=== PATIENT | female | born 1950 | race Caucasian/White ===

== ENCOUNTER 2017-09-24 16:32 | Emergency (ER) | payer OTHER ==
[~2017-09-24] VITALS: Ht 175.3 cm; Wt 69.0 kg
--- NOTE | ~2017-09-24 | EKG ---
[place] [address] [place] [address] ELECTROCARDIOGRAM REPORT Name: MIGUEL ROY [id number] Admission: 09/24/17 Attend Phys: Discharge: 09/24/17 Date of : 52 Report #: [id number] THIS REPORT FOR: //name// [facility] ED Test Date: 2017-09-24 Test Time: 17:34:36 Pat Name: MIGUEL ROY Department: Room: Gender: F Delinquency Prevention Social Worker: MZOOK : 1950 Requested By: Angel Morton Order Number: [id number] MD: Zeyad Méndez Measurements Intervals [place] Rate: 52 P: 61 MN: 128 QRS: 33 QRSD: 90 T: 24 QT: 513 QTc: 478 Interpretive Statements Sinus rhythm Low voltage, extremity leads Early R-wave progression Abnormal T, consider ischemia, anterior leads No previous ECG available for comparison Electronically Signed On 09-25-2017 8:19:35 RESTAURANT SERVER by Zeyad Méndez [email or web address] <ELECTRONICALLY SIGNED> By: Zeyad Méndez MD, [facility] 09/25/17 0819 1734 173 Zeyad Méndez MD, FACC /EPI
[2017-09-24] MEDS ORDERED: ZANTAC 150MG T150 MG PO (17:08)
[2017-09-24] MEDS ORDERED: HYDROXYZINE HCL25 M1 PO (17:08)
[2017-09-24] MEDS ORDERED: ALL DAY ALLERGY10 M3 PO (17:09)
[2017-09-24] MEDS ORDERED: CIPRO500 MG PO (17:09)
[2017-09-24] MEDS ORDERED: MOBIC15 MG PO (17:10)
[2017-09-24 17:59] LABS: ABSOLUTE NEUTROPHILS 5.3 thou/uL (1.4-8.2); BASOPHILS 0.3 % (0.0-2.0); EOSINOPHILS 0.9 % (0.0-3.0); HEMATOCRIT 35.8 % (37.0-47.0); LYMPHOCYTES 12.2 % (24.0-44.0); MCHC 33.6 g/dL (28.0-37.0); MCV 89.1 fL (80.0-100.0); MONOCYTES 7.7 % (1.0-8.0); PLATELET COUNT 193 thou/uL (150-400); POLYS 78.9 % (36.0-66.0); RBC 4.01 mil/uL (4.20-5.00); RDW 15.3 % (10.5-14.5); WBC 6.7 thou/uL (4.0-11.0)
[2017-09-24 18:00] LABS: MANUAL DIFF NO
[2017-09-24 18:32] LABS: URINE BLOOD NEGATIVE (Negative); URINE COLOR YELLOW; URINE GLUCOSE-RANDOM* NEGATIVE (Negative); URINE KETONES 2+ (Negative); URINE LEUKOCYTES-REFLEX NEGATIVE (Negative); URINE PROTEIN (DIPSTICK) TRACE (Negative); URINE SPECIFIC GRAVITY >= 1.030 (1.005-1.035); URINE UROBILINOGEN 0.2 E.U./dl (0.2-1.0)
[2017-09-24 18:34] LABS: URINE BILIRUBIN NEGATIVE (Negative)
[2017-09-24 18:42] LABS: ALBUMIN 3.4 g/dL (3.4-5.0); ALKALINE PHOSPHATASE 207 U/L (46-116); ANION GAP 13 mmol/L (7-16); BUN 19 mg/dL (7-18); CALCIUM 8.9 mg/dL (8.5-10.1); CHLORIDE 105 mmol/L (98-107); CO2 22 mmol/L (21-32); CREATININE 0.7 mg/dL (0.6-1.0); GLUCOSE 143 mg/dL (74-106); POTASSIUM 3.7 mmol/L (3.5-5.1); SGOT 55 U/L (15-37); SGPT 85 U/L (30-65); SODIUM 140 mmol/L (136-145); TOTAL BILIRUBIN 0.4 mg/dL (<0.1-1.0); TOTAL PROTEIN 6.7 g/dL (6.4-8.2); TROPONIN-I < 0.04 ng/mL (<0.06)
[2017-09-24 19:47] VITALS: BP 185/86
[2017-09-24] MEDS ORDERED: ZOFRAN ODT8 MG PO (19:57)
[2017-09-24] MEDS ORDERED: NORCO 5-325 TA1 EACH PO (19:57)
[2017-09-24] MEDS ORDERED: NAPROSYN500 MG PO (19:57)
== END 2017-09-24 20:45 | disposition home or self-care (01) ==
LOC: ER 16:32
PROVIDERS: Emergency Medicine
DX: T84.52XA Infection and inflammatory reaction due to internal left hip prosthesis, initial encounter (principal); M54.6 Pain in thoracic spine; R79.82 Elevated C-reactive protein (CRP); R79.89 Other specified abnormal findings of blood chemistry; F17.210 Nicotine dependence, cigarettes, uncomplicated; Y92.89 Other specified places as the place of occurrence of the external cause

== ENCOUNTER 2017-09-27 10:11 | Inpatient (IN) | payer OTHER ==
[~2017-09-27] VITALS: Ht 175.3 cm; Wt 69.4 kg
--- NOTE | ~2017-09-27 | EKG ---
[address] [facility] [place] [address] ELECTROCARDIOGRAM REPORT Name: MIGUEL ROY Room #: 170-8 ADM IN M.R.#: [id number] Admission: 09/27/17 Attend Phys: Anali Alvarez MD Discharge: Date of : 52 Report #: [id number] THIS REPORT FOR: //name// [facility] ED Test Date: 2017-09-27 Test Time: 10:28:30 Pat Name: MIGUEL ROY Department: Room: 170 Gender: F Landmen: [facility] : 1950 Requested By: Ronel Mercado Order Number: [id number] MD: Rafa Jesus Measurements Intervals [place] Rate: 56 P: 45 WI: 129 QRS: 13 QRSD: 91 T: 40 QT: 477 QTc: 461 Interpretive Statements Sinus rhythm Probable left atrial enlargement Early R to S wave transition Nonspecific ST segment abnormalities Compared to ECG 09/24/2017 17:34:36 Possible ischemia no longer present Electronically Signed On 09-27-2017 12:34:25 SAP SECURITY ARCHITECT by Rafa Jesus [email or web address] <ELECTRONICALLY SIGNED> By: Rafa Jesus MD 09/27/17 1234 1028 1028 Rafa Jesus MD /VANESSA
--- NOTE | ~2017-09-27 | HC ---
[facility] [place] [address] CONSULTATION Name: ANNE TOHMAS Room #: 408-P [facility] IN ..#: [id number] Admission: 09/27/17 Attend Phys: Anali Alvarez MD Discharge: 10/04/17 Date of : 52 Report #: [id number] THIS REPORT FOR: //name// CC: Anali Vásquez DATE OF SERVICE: 09/29/2017 CONSULTATION: Infectious diseases. HISTORY OF PRESENT ILLNESS: Alec Thomas is a 67-year-old white female who is admitted to the hospital on September 27, with nausea and vomiting. Workup showed elevated lipase and some peripancreatic fluid suggesting acute pancreatitis. After coming to the hospital, the patient developed a diffuse morbilliform rash. The patient was evaluated in the emergency room on September 24, with back pain, that was mid back and low back. She was also noted to be dizzy and lightheaded with generalized malaise. This was thought to be a musculoskeletal problem, was treated with inflammatory drugs and anti-spasm drugs. The patient was started on Cipro approximately 4 weeks ago, she had a left hip replacement done in January of this year. While in rehab, the patient had significant drainage from the wound. She said this was cultured and she was given antibiotics, but she is not sure what. She did not have a followup surgical procedure. Antibiotics were discontinued. Approximately one month ago, she was having more pain in the hip. She had an aspiration and then had washout with placement of antibiotic impregnated beads. The patient does not know what the culture showed. She was told that she should take Cipro for 4 weeks after the procedure. At one point, she was told to take 2 more weeks because what sounds like an elevation of the sed rate and a CRP. In this setting, the patient developed these new symptoms. PAST MEDICAL HISTORY: Otherwise pretty much unremarkable. The patient is generally in good health without any ongoing medical problems. MEDICATION RECONCILIATION: Current medications include enoxaparin 40 mg subq at bedtime, pantoprazole 40 mg b.i.d., hydroxyzine 25 mg q.i.d. p.r.n. itch, Rocephin 1 gram daily, p.r.n. morphine, MiraLax and Zofran. ALLERGIES: The patient has no known drug allergies prior to the current illness. FAMILY HISTORY: Noncontributory. SOCIAL HISTORY: The patient is . She lives with her who had [address] [address] CONSULTATION Name: ANNE THOMAS Room #: 408-P [facility]#: [id number] Admission: 09/27/17 Attend Phys: Anali Alvarez MD Discharge: 10/04/17 Date of : 52 Report #: [id number] throat cancer. She does smoke cigarettes, and says she is interested in smoking cessation. She was counseled as to the benefits of smoking cessation, particularly with acute infection and post-surgical healing as well as benefits for her to avoid secondhand smoke with history of cancer. REVIEW OF SYSTEMS: GENERAL: The patient is not complaining of fevers, chills, or sweats. ENT: No headache, sinus congestion, sore throat, or trouble swallowing. SKIN: The patient notes the rash, but says it is not pruritic. It just came on since she came to [facility]. CHEST: No cough, chest pain, or shortness of breath. GASTROINTESTINAL: Nausea and vomiting. This is better. The patient now is tolerating clear liquid diet and we would like her diet advance. The patient had the back pain and abdominal pain, these are improved, no trouble with her bowels. GENITOURINARY: No trouble with urination. HIP: The patient says that she is feeling better than it has in while and she was even able to walk without a cane this week. PHYSICAL EXAMINATION: GENERAL: The patient appears her stated age, alert, oriented, comfortable, not in any distress. VITAL SIGNS: Normal. The patient is afebrile since coming to the hospital. Blood pressure is normal. SKIN: Shows a morbilliform type rash most prominent on the distal arms and legs. There may be a few possible spots on the palms. Soles of the feet are unremarkable. Face and torso are relatively uninvolved. The lesions are dark red flat macules, almost confluent in places. HEENT: Negative. NECK: Supple. HEART: Sounds normal. LUNGS: Clear. ABDOMEN: Belly minimally tender and soft. EXTREMITIES: Unremarkable. The patient demonstrates a good flexion and abduction of the hip. The surgical wound appears mature and well healed. There is no tenderness and no swelling. LABORATORY DATA: White count is 13.8, hemoglobin 10.4, and platelet 191,000. Electrolytes: BUN and creatinine are normal and glucose normal. CRP is 71. Lactate is normal. Amylase was 4000. The urinalysis showed 2+ white cells and 6-15 white cells are microscope. Urine culture showed normal cholo. Imagings of the abdomen showed mild amount of fluid around the body of the pancreas. The biliary tree appeared unremarkable. In summary, the patient who is being treated for possible infection of a total hip arthroplasty. She has not had explantation and I am not sure if she even [facility] [place] [address] CONSULTATION Name: ANNE THOMAS Room #: 408-P [facility] IN M.R.#: [id number] Admission: 09/27/17 Attend Phys: Anali Alvarez MD Discharge: 10/04/17 Date of : 52 Report #: [id number] had a washout procedure. I do not know if there are positive cultures. The patient was placed on Cipro and then developed pancreatitis and now a rash. Pancreatitis has been described is a rare conmplication of Cipro therapy. In some studies, the incident is as high as 3%, but usually occurs within the first 10 days of treatment. There really is no other good explanation for the patient to have acute pancreatitis. It is not clear what the hip infection status is. I would like to review the records from [facility] where the original surgery was done and the implantation of the antibiotic beads. In addition, I believe there was a positive culture and the patient was at the [facility] in [place], [place]; this may allow us to get a better idea as to hip infection and what antibiotics would be appropriate. I am very concerned that the patient's pancreatitis and rash may be an adverse reaction to the Cipro. There have been a number of other drugs which have been introduced since the patient went to the ER and then here in the hospital, which may also be causing the rash. For now, I would like to change the antibiotic from Rocephin to cefepime to cover the possibility of pseudomonas or other gram-negatives. I would try to obtain the cultures from outside facilities to direct further therapy. I would suggest we avoid further quinolone therapy and have the patient report CIPRO ALLERGY. I appreciate the opportunity of input in the care of the patient. Dr. Chung will return tomorrow and will assume follow up infectious disease care. Thank you for this consultation. <ELECTRONICALLY SIGNED> By: Devante Prakash MD 10/13/17 0021 1039 1327 Devante Prakash MD /nt
--- NOTE | ~2017-09-27 | CNG ---
[facility] [place] [address] CYTO-NONGYN REPORT PROCEDURE Name: ANNE THOMAS Room #: 408-P [facility] IN M.R.#: [id number] Admission: 09/27/17 Date of : 52 Discharge: 10/04/17 Report #: [id number] Path Case #: [id number] CYTOPATHOLOGY REPORT COLLECTION DATE: 10/03/2017 RECEIVED DATE: 10/03/2017 SUBMITTING PHYS: Dr. Storm Vásquez, II OTHER PHYS: Dr. Pooja Alvarez CLINICAL HISTORY: R/O cynthia, acute pancreatitis SPECIMEN(S) RECEIVED: A.Esophageal brushing * * * * * * * * * * * * FINAL DIAGNOSIS: A. Esophageal brushing: - No malignant cells identified. -Reactive cells changes, inflammation and fungal organisms morphologically consistent with Cynthia species are present. PATHOLOGIST: Remi Loco M.D. REPORT ELECTRONICALLY SIGNED BY: Remi Loco M.D. DATE/TIME: 10/07/2017 11:11 * * * * * * * * * * * * GROSS PATHOLOGY: A. Esophageal brushing: The specimen is labeled "Anne Thomas" and consists of a brush tip in fixative. One ThinPrep slide was prepared. (lg12.) FISHER DIP NET(S): MIKEY Patel([facility]) INITIAL CPT CODE(S): A; 24211 Professional services performed by [facility] at [facility] [address], [place] [address] Technical services performed by [facility] at [address] [place] [address]., [address], [place] [address]. [facility] [address] [place] [address], [facility] [address] [place], [place] [address] [place] [address] [place] [address] CYTO-NONGYN REPORT PROCEDURE Name: ANNE THOMAS Room #: 408-P [facility] IN M.R.#: [id number] Admission: 09/27/17 Date of : 52 Discharge: 10/04/17 Report #: [id number] Path Case #: [id number] PHONE: [phone] DIRECTOR: Rudy Castro M.D. * * * END OF REPORT * * *
--- NOTE | ~2017-09-27 | P ---
[facility] [place] [address] PROCEDURE REPORT Name: ANNE THOMAS Room #: 408-P ADM IN M.R.#: [id number] Admission: 09/27/17 Attend Phys: Anali Alvarez MD Discharge: Date of : 52 Report #: [id number] THIS REPORT FOR: //name// CC: Anali Vásquez MD DATE OF SERVICE: 10/02/2017 PATIENT OF: Dr. Anali Alvarez. PROCEDURE: EGD with biopsies and brushings. INDICATION FOR PROCEDURE: Evaluate pain across the epigastrium. The patient was diagnosed with pancreatitis when she was admitted and it was thought to be due to Cipro. Her lipase has normalized, but she is continuing to complain of narcotic level pain across the epigastrium. The etiology is not clear. EGD is being performed today to try to evaluate for a source that might explain these symptoms. Informed consent for this procedure was obtained prior to the administration of any medication. The risks of the procedure, which include bleeding, perforation, infection, complications of sedation, and the possibility I could miss something have been explained to the patient. She has indicated her consent by signing. Propofol was slowly titrated before and during this procedure for the patient comfort by the anesthesia service. The [employer] upper videoscope was introduced through the upper esophageal sphincter and advanced under direct visualization to the descending duodenum. Findings are noted on withdrawal of the scope. The duodenal mucosa appears normal throughout its entirety except for some pockmarks in the duodenal bulb. Biopsies were obtained times 2 from the second portion of the duodenum to evaluate for celiac sprue. The scope was then withdrawn into the stomach. Pylorus is normal. In the antrum, there is what appears to be atrophic gastric antral mucosa, biopsies are obtained times 2 to evaluate for possible H. pylori infection. Body, normal mucosa. Cardia and fundus, normal mucosa. Retroflex view did not reveal any abnormalities. She might have a small hiatal hernia. The scope was then withdrawn into the esophagus after biopsies were obtained times 2 evaluate for possible H. pylori infection. The Z-line in the esophagus is located at the top of the gastric folds and appears normal. The esophageal mucosa appears basically normal, but there is a white exudative material that is present in the esophagus that is easily wiped off with the scope. I did send this for ALEX prep to make sure that we do not miss a Marni infection. Other than that, the esophageal mucosa appeared normal. The scope was withdrawn. The patient went to the recovery area in stable condition. [address] [address] PROCEDURE REPORT Name: WILLIAMANNE Room #: 408-P [facility] IN .R.#: [id number] Admission: 09/27/17 Attend Phys: Anali Alvarez MD Discharge: Date of : 52 Report #: [id number] She tolerated the procedure well. IMPRESSION: 1. Slightly pocked appearance 2 duodenal bulb. 2. Mildly atrophic gastric antrum. 3. White exudate in the esophagus. RECOMMENDATIONS: To await the biopsies from the second portion of the duodenum from the antrum and the brushings from the esophagus for ALEX prep. I would also recommend that we proceed with PIPIDA scan with gallbladder ejection fraction as our next test. Thank you very much once again for allowing me to participate in her care, Dr. Vásquez and Dr. Alvarez. <ELECTRONICALLY SIGNED> By: Pooja Mancini DO 10/02/172200 1415 50 Pooja Mancini DO /nt
--- NOTE | ~2017-09-27 | HC ---
[facility] [place] [address] CONSULTATION Name: WILLIAMANNE Nicole Room #: 408-P ADM IN M.R.#: [id number] Admission: 09/27/17 Attend Phys: Anali Alvarez MD Discharge: Date of : 52 Report #: [id number] THIS REPORT FOR: //name// CC: Anali Vásquez DATE OF SERVICE: 09/28/2017 HISTORY OF PRESENT ILLNESS: The patient is a 67-year-old female who began having back pain several days ago, went to her local physician in [place], they thought this may be secondary to reflux, gave her Zantac, continued to have pain which became worse , it was in the midepigastrium, into the back, into the right upper quadrant as well. She was evaluated in the Emergency Room here on 09/24/[address] scan of the abdomen and pelvis was performed. This showed distended gallbladder, no evidence of pericholecystic inflammatory changes or calcified gallstones were identified. Mild biliary ductal dilation was noted. Otherwise, essentially negative. Her lipase on that visit was normal at 64. She was sent home, continued having significant pain and therefore was reevaluated in the Emergency Room on the ; this time however her lipase was elevated at 4000 consistent with acute pancreatitis and she was admitted. Since admission, she has been on IV fluids. Her lipase today is 772. Her bilirubin has been normal. She is feeling better at this time, denies any abdominal pain today. She did have nausea and vomiting associated with her symptoms initially. She denies any nausea or vomiting at this time. She denies any fevers or chills. No chest pain or shortness of breath. Her bowel movements have been fairly normal. She does have a history of a hip replacement in January of this year and unfortunately has had a chronic infection. She has been basically on antibiotics for the last several months because of this. Since admission, she underwent an ultrasound of the abdomen and pelvis on 09/27/2017. No evidence of gallstones. The gallbladder is mildly distended. There is no gallbladder wall thickening. The pancreas is unremarkable other than perhaps a trace peripancreatic fluid. PAST MEDICAL HISTORY: Gastroesophageal reflux disease, left hip replacement with infection. MEDICATIONS: On admission: Hydroxyzine, Zantac 150 b.i.d., ciprofloxacin, meloxicam. ALLERGIES: No known drug allergies. FAMILY HISTORY: Negative for colon cancer. SOCIAL HISTORY: She denies any significant alcohol use. She does smoke on a regular basis. [address] [address] CONSULTATION Name: ANNE THOMAS Room #: [facility] IN ..#: [id number] Admission: 09/27/17 Attend Phys: Anali Alvarez MD Discharge: Date of : 52 Report #: [id number] REVIEW OF SYSTEMS: As per HPI. PHYSICAL EXAMINATION: VITAL SIGNS: Temperature is 98.0, pulse 60, blood pressure 124/70, respiratory rate is 18. GENERAL: She is alert and oriented x 3 in no acute distress. HEENT: Sclerae nonicteric. Oropharynx clear. NECK: Supple, without lymphadenopathy. CARDIOVASCULAR: Regular rate and rhythm. CHEST: Clear to auscultation bilaterally. ABDOMEN: Soft. She is mildly tender to palpation in the midepigastrium and right upper quadrant, nondistended, normoactive bowel sounds. EXTREMITIES: No cyanosis, clubbing or edema. LABORATORY DATA: Sodium 139, potassium 3.3, chloride 105, bicarbonate 22, BUN 36, creatinine 0.8, AST is 73. Lipase 772, that is down from 4138 yesterday. Total bili 0.5, alk phos is 160, ALT is 105, total protein 7.0 and albumin 3.6. CRP is 71.6. WBC is 10.9, hemoglobin 10.7, platelet count is 198. ASSESSMENT AND PLAN: Acute pancreatitis, etiology is unclear at this time. Consider the possibility of choledocholithiasis, although the patient has had an ultrasound and CT showing no evidence of cholelithiasis. She does have a mild dilation of her common bile duct. She also has elevated liver function tests. Therefore, would recommend proceeding with an MRCP for further evaluation. It is possible the patient could have had a stone and passed it, she is having less pain at this time. She denies any significant alcohol history. The possibility of medication-induced pancreatitis is also considered, although she is not on medications high risk for pancreatitis. In the meantime, continue IV fluids and supportive care. Thank you for allowing me to participate in her care. <ELECTRONICALLY SIGNED> By: Jerad Can MD 09/29/17 1314 1143 2141 Jerad Can MD /nt
--- NOTE | ~2017-09-27 | S ---
[facility] [place] [address] SURGICAL PATH RPT PROCEDURE Name: ANNE THOMAS Nicole Room #: 408-P ADM IN M.R.#: [id number] Admission: 09/27/17 Date of : 52 Discharge: Report #: [id number] Path Case #: [id number] PATHOLOGY REPORT COLLECTION DATE: 10/02/2017 RECEIVED DATE: 10/02/2017 SUBMITTING PHYS: Dr. Pooja Mancini OTHER PHYS: Dr. Storm Vásquez, II Dr. Anali Salazar SPECIMEN(S) RECEIVED: A.Gastric R/O H pylori B.Duodenum R/O celiac * * * * * * * * * * * * FINAL DIAGNOSIS: A. Stomach, biopsy: - Chronic superficial gastritis, mild. - No evidence of Helicobacter pylori on immunoperoxidase stain. B. Small bowel, duodenum, biopsy: - Mild chronic inflammation. - Normal villous architecture. (SKM:german; 10/03/2017) PATHOLOGIST: Leatha Bhatia M.D. REPORT ELECTRONICALLY SIGNED BY: Leatha Bhatia M.D. DATE/TIME: 10/03/2017 12:07 * * * * * * * * * * * * GROSS PATHOLOGY: A. Received in formalin labeled "Anneambar Thomas, BX gastric, rule out H. pylori," are 2 segments of siddiqi soft tissue measuring 0.8 x 0.2 x 0.2 cm in aggregate dimensions and ranging from 0.3 to 0.5 cm in maximum dimension. The specimen is submitted entirely in cassette A1. B. Received in formalin labeled "Anne Thomas, BX duodenum, rule out celiac," are 3 segments of siddiqi soft tissue measuring 0.8 x 0.7 x 0.2 cm in aggregate dimensions and ranging from 0.3 to 0.5 cm in maximum dimension. The specimen is submitted entirely in cassette B1. (TSD; 10/02/2017) CLINICAL HISTORY: Pre-OP DX: Abdominal pain Post-OP DX: Exugated esophagus, small hiatal hernia [address] [address] SURGICAL PATH RPT PROCEDURE Name: ANNE THOMAS Room #: 408-P [facility] IN M.R.#: [id number] Admission: 09/27/17 Date of : 52 Discharge: Report #: [id number] Path Case #: [id number] INITIAL CPT CODE(S): A; 64850, 17576 B; 64883 Professional services performed by [facility] at [address] , [place] [address] Technical services performed by [facility] at [address] [place] [address], [facility] [address], [place] [address]. [facility] [address] [address] PHONE: [phone] DIRECTOR: Rudy Castro M.D. * * * END OF REPORT * * *
[~2017-09-27 10:11] MED LIST: ALL DAY ALLERGY10 M3 PO; CIPRO500 MG PO; HYDROXYZINE HCL25 M1 PO; MOBIC15 MG PO; NAPROSYN500 MG PO; NORCO 5-325 TA1 EACH PO; ZANTAC 150MG T150 MG PO; ZOFRAN ODT8 MG PO
[2017-09-27 10:14] VITALS: BP 101/59
[2017-09-27 10:42] LABS: HEMATOCRIT 35.8 % (37.0-47.0); HEMOGLOBIN 12.3 gm/dL (12.0-15.0); MCHC 34.2 g/dL (28.0-37.0); MCV 87.7 fL (80.0-100.0); PLATELET COUNT 222 thou/uL (150-400); RBC 4.08 mil/uL (4.20-5.00); RDW 15.2 % (10.5-14.5); WBC 12.5 thou/uL (4.0-11.0)
[2017-09-27 10:51] LABS: ANION GAP 11 mmol/L (7-16); BUN 41 mg/dL (7-18); CALCIUM 10.2 mg/dL (8.5-10.1); CHLORIDE 99 mmol/L (98-107); CO2 25 mmol/L (21-32); CREATININE 0.9 mg/dL (0.6-1.0); GLUCOSE 112 mg/dL (74-106); POTASSIUM 3.6 mmol/L (3.5-5.1); SODIUM 135 mmol/L (136-145)
[2017-09-27 11:02] LABS: ABSOLUTE NEUTROPHILS 9.6 thou/uL (1.4-8.2)
[2017-09-27 11:03] LABS: ANISOCYTOSIS 1+
[2017-09-27 11:06] LABS: ALBUMIN 3.6 g/dL (3.4-5.0); SGOT 73 U/L (15-37); SGPT 105 U/L (30-65); TOTAL BILIRUBIN 0.5 mg/dL (<0.1-1.0); TROPONIN-I < 0.04 ng/mL (<0.06)
[2017-09-27 11:16] LABS: LIPASE 4138 U/L (73-393)
[2017-09-27 11:27] LABS: URINE BLOOD TRACE (Negative); URINE CLARITY CLEAR; URINE COLOR YELLOW; URINE GLUCOSE-RANDOM* NEGATIVE (Negative); URINE KETONES 1+ (Negative); URINE NITRITE-REFLEX NEGATIVE (Negative); URINE PROTEIN (DIPSTICK) 1+ (Negative); URINE SPECIFIC GRAVITY 1.025 (1.005-1.035); URINE UROBILINOGEN 0.2 E.U./dl (0.2-1.0)
[2017-09-27 11:31] LABS: ICTOTEST (BILI CONFIRMATORY) Negative (Negative); URINE BILIRUBIN NEGATIVE (Negative); URINE LEUKOCYTES-REFLEX 2+ (Negative)
[2017-09-27 11:39] LABS: CRYSTALS None Seen /LPF (None Seen); HYALINE CASTS 0-3 Few /LPF (None Seen); SQUAMOUS >10 Many /LPF (0-3); URINE RBC 0-2 Rare /HPF (0-2); URINE WBC-REFLEX 6-15 Few /HPF (0-5)
[2017-09-27 12:27] VITALS: BP 128/65; BP 129/60
[2017-09-27 12:50] VITALS: BP 139/69
[2017-09-27 20:00] VITALS: BP 134/72
[2017-09-28 03:10] LABS: HEMATOCRIT 31.8 % (37.0-47.0); HEMOGLOBIN 10.7 gm/dL (12.0-15.0); MCH 29.9 pg (26.0-34.0); MCHC 33.6 g/dL (28.0-37.0); MCV 88.9 fL (80.0-100.0); RBC 3.58 mil/uL (4.20-5.00); WBC 10.9 thou/uL (4.0-11.0)
[2017-09-28 03:27] LABS: CALCIUM 8.3 mg/dL (8.5-10.1); CREATININE 0.8 mg/dL (0.6-1.0); POTASSIUM 3.3 mmol/L (3.5-5.1)
[2017-09-28 04:00] VITALS: BP 126/67
[2017-09-28 09:51] VITALS: BP 124/70
[2017-09-28 16:15] VITALS: BP 124/66
[2017-09-28 20:47] VITALS: BP 111/60
[2017-09-29 05:32] VITALS: BP 125/68
[2017-09-29 06:32] LABS: HEMATOCRIT 31.4 % (37.0-47.0); HEMOGLOBIN 10.4 gm/dL (12.0-15.0); MCH 29.5 pg (26.0-34.0); MCHC 33.1 g/dL (28.0-37.0); RBC 3.52 mil/uL (4.20-5.00); WBC 13.8 thou/uL (4.0-11.0)
[2017-09-29 06:47] LABS: CALCIUM 7.8 mg/dL (8.5-10.1); CREATININE 0.6 mg/dL (0.6-1.0); POTASSIUM 3.2 mmol/L (3.5-5.1)
[2017-09-29 09:41] VITALS: BP 118/54
[2017-09-29 20:18] VITALS: BP 105/52
[2017-09-30 03:33] VITALS: BP 105/52
[2017-09-30 05:35] LABS: ABSOLUTE NEUTROPHILS 9.2 thou/uL (1.4-8.2); BASOPHILS 0.3 % (0.0-2.0); EOSINOPHILS 2.3 % (0.0-3.0); HEMATOCRIT 28.5 % (37.0-47.0); HEMOGLOBIN 9.6 gm/dL (12.0-15.0); LYMPHOCYTES 23.3 % (24.0-44.0); MCH 29.4 pg (26.0-34.0); MCHC 33.5 g/dL (28.0-37.0); MCV 87.7 fL (80.0-100.0); PLATELET COUNT 190 thou/uL (150-400); POLYS 65.1 % (36.0-66.0); RBC 3.25 mil/uL (4.20-5.00); RDW 15.2 % (10.5-14.5); WBC 14.1 thou/uL (4.0-11.0)
[2017-09-30 05:56] LABS: CALCIUM 7.6 mg/dL (8.5-10.1); CREATININE 0.7 mg/dL (0.6-1.0); MAGNESIUM 2.1 mg/dL (1.8-2.4)
[2017-09-30 05:58] LABS: AMYLASE 46 U/L (25-115); LIPASE 198 U/L (73-393)
[2017-09-30 07:30] VITALS: BP 105/51
[2017-09-30 16:17] VITALS: BP 116/55
[2017-09-30 19:25] VITALS: BP 108/54
[2017-10-01 04:30] VITALS: BP 120/61
[2017-10-01 05:36] LABS: ABSOLUTE NEUTROPHILS 8.5 thou/uL (1.4-8.2); BASOPHILS 0.5 % (0.0-2.0); EOSINOPHILS 4.1 % (0.0-3.0); HEMATOCRIT 30.4 % (37.0-47.0); LYMPHOCYTES 23.2 % (24.0-44.0); MCH 29.2 pg (26.0-34.0); MCHC 32.9 g/dL (28.0-37.0); MCV 88.8 fL (80.0-100.0); MONOCYTES 8.4 % (1.0-8.0); PLATELET COUNT 246 thou/uL (150-400); POLYS 63.8 % (36.0-66.0); RBC 3.42 mil/uL (4.20-5.00); RDW 15.3 % (10.5-14.5); WBC 13.4 thou/uL (4.0-11.0)
[2017-10-01 05:48] LABS: CALCIUM 8.2 mg/dL (8.5-10.1); CREATININE 0.7 mg/dL (0.6-1.0); POTASSIUM 3.7 mmol/L (3.5-5.1)
[2017-10-01 08:00] VITALS: BP 101/62
[2017-10-01 16:01] VITALS: BP 107/52
[2017-10-01 20:00] VITALS: BP 107/57
[2017-10-02 04:47] VITALS: BP 108/58
[2017-10-02 06:10] LABS: ABSOLUTE NEUTROPHILS 7.9 thou/uL (1.4-8.2); BASOPHILS 0.5 % (0.0-2.0); EOSINOPHILS 4.7 % (0.0-3.0); HEMATOCRIT 27.9 % (37.0-47.0); HEMOGLOBIN 9.4 gm/dL (12.0-15.0); LYMPHOCYTES 20.7 % (24.0-44.0); MCHC 33.8 g/dL (28.0-37.0); MCV 88.6 fL (80.0-100.0); MONOCYTES 7.7 % (1.0-8.0); PLATELET COUNT 265 thou/uL (150-400); POLYS 66.4 % (36.0-66.0); RBC 3.15 mil/uL (4.20-5.00); RDW 15.3 % (10.5-14.5); WBC 11.8 thou/uL (4.0-11.0)
[2017-10-02 06:30] LABS: CREATININE 0.7 mg/dL (0.6-1.0); POTASSIUM 3.4 mmol/L (3.5-5.1)
[2017-10-02 06:38] LABS: DIRECT BILIRUBIN 0.1 mg/dL (<0.1-0.3); TOTAL BILIRUBIN 0.4 mg/dL (<0.1-1.0); TOTAL PROTEIN 5.3 g/dL (6.4-8.2)
[2017-10-02 07:41] VITALS: BP 116/61
[2017-10-02 20:00] VITALS: BP 122/63
[2017-10-03 04:00] VITALS: BP 118/63
[2017-10-03 06:07] LABS: ALBUMIN 1.9 g/dL (3.4-5.0); DIRECT BILIRUBIN 0.1 mg/dL (<0.1-0.3); TOTAL BILIRUBIN 0.4 mg/dL (<0.1-1.0); TOTAL PROTEIN 4.8 g/dL (6.4-8.2)
[2017-10-03 16:00] VITALS: BP 116/55
[2017-10-03 19:59] VITALS: BP 127/64
[2017-10-04 06:57] VITALS: BP 134/73
[2017-10-04] MEDS ORDERED: KEFLEX500 M1 PO (08:23)
[2017-10-04] MEDS ORDERED: NYSTATIN100000 UNI SW&SWALLOW (08:23)
[2017-10-04 10:27] VITALS: BP 134/73
== END 2017-10-04 12:30 | disposition home or self-care (01) | DRG 559 ==
LOC: ER 10:11 → 4N 11:42 → EROBS 11:42 → 4N 12:31
PROVIDERS: Family Medicine; Hospitalist; Internal Medicine; Internal Medicine Gastroenterology; Internal Medicine Infectious Disease; Physician Assistant; Specialist
PROC: 0DB68ZX Excision of Stomach, Via Natural or Artificial Opening Endoscopic, Diagnostic (ICD-10-PCS; principal; 2017-10-02)
PROC: 0DB98ZX Excision of Duodenum, Via Natural or Artificial Opening Endoscopic, Diagnostic (ICD-10-PCS; principal; 2017-10-02)
PROC: 0DD58ZX Extraction of Esophagus, Via Natural or Artificial Opening Endoscopic, Diagnostic (ICD-10-PCS; principal; 2017-10-02)
DX: T84.52XA Infection and inflammatory reaction due to internal left hip prosthesis, initial encounter (principal); K85.80 Other acute pancreatitis without necrosis or infection; E43 Unspecified severe protein-calorie malnutrition; N39.0 Urinary tract infection, site not specified; M00.052 Staphylococcal arthritis, left hip; K21.9 Gastro-esophageal reflux disease without esophagitis; Z96.642 Presence of left artificial hip joint; F17.210 Nicotine dependence, cigarettes, uncomplicated; K59.00 Constipation, unspecified; R21 Rash and other nonspecific skin eruption; K80.20 Calculus of gallbladder without cholecystitis without obstruction; K29.70 Gastritis, unspecified, without bleeding; T36.8X5A Adverse effect of other systemic antibiotics, initial encounter; B95.61 Methicillin susceptible Staphylococcus aureus infection as the cause of diseases classified elsewhere; Y83.8 Other surgical procedures as the cause of abnormal reaction of the patient, or of later complication, without mention of misadventure at the time of the procedure; Y92.89 Other specified places as the place of occurrence of the external cause; Z79.899 Other long term (current) drug therapy; Z88.1 Allergy status to other antibiotic agents; Z68.22 Body mass index [BMI] 22.0-22.9, adult
CPT/HCPCS: 10091; 62110; 62900

== ENCOUNTER 2017-10-06 20:35 | Inpatient (IN) | payer OTHER ==
[~2017-10-06] VITALS: Ht 175.3 cm; Wt 69.4 kg
--- NOTE | ~2017-10-06 | H ---
[facility] [place] [address] HISTORY AND PHYSICAL Name: ANNE THOMAS Room #: 433-I ADM IN M.R.#: [id number] Admission: 10/06/17 Attend Phys: Dimas Leon DO Discharge: Date of : 52 Report #: [id number] THIS REPORT FOR: //name// CC: Storm Leon DATE OF SERVICE: 10/06/2017 ATTENDING PHYSICIAN: Dimas Leon DO. PRIMARY CARE PHYSICIAN: Storm Vásquez MD. CHIEF COMPLAINT: Persistent abdominal pain. HISTORY OF PRESENT ILLNESS: The patient is a 67-year-old female who was just hospitalized here at [facility] due to pancreatitis. She initially had a lipase of 4138. She went through multiple tests while she was here including an EGD, which showed possible Marni, but H. pylori and celiac were negative. She also had an MRCP, which showed a normal common bile duct. There was a small amount of perihepatic ascites and some edema around the pancreas consistent with pancreatitis. Her abdominal ultrasound showed a mildly distended gallbladder, but no cholelithiasis and there was trace peripancreatic fluid. Her PIPIDA was negative. Her lipase ended up improving down to 171 and her pain was slightly better. So, she was discharged to home a few days ago. She was told if her pain persists, she should go back to the ER. She did go back to the ER at [facility] and because she had just been here, they decided to transfer her here for continuity of care. She also has a recent rash, felt to be due to Cipro. 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 She then underwent I and D of this hip in March and another aspiration in August that showed Staph that was sensitive to Cipro. So, she was started on that and end of August, developed a rash. They also thought the Cipro reaction may have contributed to her pancreatitis. She was followed by Infectious Disease during her last hospitalization here due to this chronic hip infection and was told she likely needs the hardware removed. She was going to follow up with her orthopedic surgeon in the next few days. She was discharged on Keflex 1 gram p.o. b.i.d. for 7 days per ID recommendations. During the hospitalization, she was also treated for UTI, but her urine culture just grew normal cholo. She says since she has been home, she has noticed increasing swelling of her lower extremities, specifically in her feet that has become very painful when she walks. She also feels that her abdomen is more bloated. She is not sure if this has to do with the swelling in her lower extremities. She denies any history of congestive heart failure. She does have some shortness of breath when lying flat. Denies any associated chest pain. She did receive a large amount of IV fluids when she was here for the pancreatitis. Her abdominal pain she describes is a low pain. She had a normal bowel movement today. Denies any diarrhea, nausea or vomiting. [address] [address] HISTORY AND PHYSICAL Name: ARISJACQUINancyANNE Room #: 433-I ADM IN [facility].#: [id number] Admission: 10/06/17 Attend Phys: Dimas Leon, DO Discharge: Date of : 52 Report #: [id number] Her rash overall has improved as well and she does not think she has been having any fevers. PAST MEDICAL HISTORY: Recent pancreatitis, chronic left hip infection, recently elevated liver function test and elevated CRP. PAST SURGICAL HISTORY: Left hip replacement in January of this year and tonsillectomy. ALLERGIES: CIPRO CAUSES A RASH AND POSSIBLY PANCREATITIS. HOME MEDICATIONS: Zyrtec 10 mg p.o. daily, Keflex 1000 mg b.i.d., nystatin swish and swallow q.i.d., Mobic 15 mg daily, [place] 5/325 one tab q. 4 hours p.r.n., hydroxyzine 25 mg q.i.d., Zofran p.o. p.r.n. and ranitidine 150 mg p.o. b.i.d. SOCIAL HISTORY: The patient denies any drug use. She does smoke a half pack of cigarettes per day. She drinks alcohol on special occasions. FAMILY HISTORY: Significant for cancer, heart disease, diabetes, and hypertension. REVIEW OF SYSTEMS: Twelve-point review of systems was reviewed with the patient, otherwise negative unless stated in the HPI. PHYSICAL EXAMINATION: GENERAL: The patient is an alert female, in no acute distress. VITAL SIGNS: Temperature is 36.8, heart rate 58, respirations 17, blood pressure 131/78, oxygen 94% on room air. HEENT: PERRLA. Sclerae are nonicteric. Oral mucosa is pink and moist. NECK: Supple, no JVD noted. CARDIOVASCULAR: Normal S1, S2. No murmurs, rubs or gallops. RESPIRATORY: Breath sounds are clear bilaterally. No wheezing or rhonchi. Breathing is nonlabored. ABDOMEN: Round and soft. She is slightly tender in the epigastric area and across the lower quadrants. Bowel sounds are positive. VASCULAR: She does have 2+ bilateral lower extremity edema that starts in her feet and extends up to her knees. SKIN: Resolving diffuse rash with overall dry skin. No open wounds. NEUROLOGIC: The patient is alert and oriented x 3. Speech is clear. She is moving all extremities equally. No focal neuro deficits noted. LABORATORY AND DIAGNOSTIC DATA: Blood work tonight done at [facility] showed a WBC is 7.7, hemoglobin 9.4, platelets 163. Sodium 140, potassium 2.7, BUN 11, creatinine 0.6, glucose 146. AST 95, ALT 91, lipase 50. UA is negative for leukocyte esterase and wbc's. There was 1+ yeast. CT of the abdomen showed [facility] [address] [place] [address] HISTORY AND PHYSICAL Name: WILLIAMANNE L Room #: 433-I ADM IN [facility].#: [id number] Admission: 10/06/17 Attend Phys: Dimas Leon DO Discharge: Date of : 52 Report #: [id number] normal gallbladder without any stones or wall abnormalities. There is no intrahepatic or extrahepatic bile duct dilatation. There were findings compatible with acute pancreatitis showing stranding around the pancreas, predominantly the body and tail with a somewhat thickened rind. The appendix was normal. There is no lymphadenopathy in the abdomen and pelvic. There is moderate free fluid in the pelvis and a fluid collection located in the gastrohepatic space measuring 4.1 x 3.4. There is no peripheral enhancement or intrinsic air to this collection and there is edema throughout the subcutaneous tissues, predominantly in the flanks and bilateral pleural effusions are small to moderate in size. ASSESSMENT AND PLAN: 1. Abdominal pain. It is not clear if this was still related to previously diagnosed pancreatitis. Her lipase is only 50 today, but her CT does continue to show pancreatic stranding. There was a fluid collection noted on CT that may represent developing pseudocyst or a phlegmon in the gastrohepatic region. It is not clear if this is causing pain as well. Continue with pain control. We will allow clear liquids. GI is consulted. 2. Acute fluid overload. The patient did receive IV fluids while hospitalized. We will check a BNP in the morning and try a dose of Lasix in the morning. If BNP is elevated, we will check an echo as well. 3. Chronic left hip infection. Continue with Keflex 1000 mg p.o. b.i.d. as prescribed by ID. She is supposed to be following up with her orthopedic surgeon in the next few days to discuss hardware removal and possible referral to [facility]. She does have a chronically elevated CRP, likely due to the chronic hip infection. 4. Transaminitis. Her liver enzymes are slightly elevated from previous. All her recent GI testing showed normal gallbladder. This may be due to the small fluid collection in the gastrohepatic region seen on CT. We will follow labs and consult GI. 5. Hypokalemia. This will be replaced. Follow labs. 6. Anemia. Hemoglobin is stable from date of recent discharge. There are no signs of bleeding. Follow labs. 7. Tobacco abuse. The patient has been advised to quit. 8. Deep venous thrombosis prophylaxis. Place sequential compression devices. We will continue to follow the patient closely throughout the hospitalization and make changes based on clinical status. <ELECTRONICALLY SIGNED> By: VANDANA Pride 10/07/17 1041 [id number] [id number] VANDANA Pride /baron
--- NOTE | ~2017-10-06 | 2DMMODE ---
[facility] [email or web address] [address] 2 D/M-MODE ECHOCARDIOGRAM Name: ANNE THOMAS Room #: 433-I [facility] IN ..#: [id number] Admission: 10/06/17 Attend Phys: Dimas Leon, Discharge: Date of : 52 Date of Service: 10/07/17 1833 Report #: [id number] THIS REPORT FOR: //name// APPROVED REPORT Study performed: 10/07/2017 14:43:29 EXAM: Comprehensive 2D, Doppler, and color-flow Echocardiogram Patient Location: Bedside Room #: 433 Status: routine BSA: 1.84 BP: 125/56 mmHg Other Information Study Quality: Good Indications Dyspnea 2D Dimensions RVDd: 27.97 mm LVEF(%): 76.23 (>50%) IVSd: 8.00 (7-11mm) LVOT Diam: 20.34 (18-24mm) LVDd: 50.44 mm PWd: 10.76 (7-11mm) Ascending Ao: 32.01 (22-36mm) LVDs: 27.66 (25-40mm) Aortic Root: 30.16 mm IVC: 21.00 mm Solorio's LVEF: 76.23 % Volumes Left Atrial Volume (Systole) Single Plane 4CH: 53.77 mL Single Plane 2CH: 58.95 mL LA ESV Index: 32.00 mL/m2 Aortic Valve AoV Peak Frandy.: 1.41 m/s AO Peak Gr.: 7.93 mmHg LVOT Max P.22 mmHg LVOT Max V: 1.03 m/s ANATOLY Vmax: 2.37 cm2 Mitral Valve E/A Ratio: 1.9 MV Decel. Time: 207.67 ms MV E Max Frandy.: 1.18 m/s [facility] [place] [address] 2 D/M-MODE ECHOCARDIOGRAM Name: ANNE THOMAS Room #: 433-I [facility] IN .R.#: [id number] Admission: 10/06/17 Attend Phys: Dimas Leon, Discharge: Date of : 52 Date of Service: 10/07/17 1833 Report #: [id number] MV A Frandy.: 0.63 m/s MV PHT: 60.22 ms IVRT: 86.51 ms Pulmonary Valve PV Peak Frandy.: 0.89 m/s PV Peak Gr.: 3.14 mmHg Pulmonary Vein P Vein S: 0.69 m/s P Vein A: 0.26 m/s P Vein D: 0.77 m/s P Vein A Dur.: 124.6 msec P Vein S/D Ratio: 0.90 Tricuspid Valve TR Peak Frandy.: 3.10 m/s RAP Estimate: 5.00 mmHg TR Peak Gr.: 38.42 mmHg Left Ventricle The left ventricle is normal size. There is normal LV segmental wall motion. There is normal left ventricular wall thickness. The left ventricular systolic function is normal. The left ventricular ejection fraction is within the normal range. LVEF is 60-65%. Grade II - pseudonormal filling dynamics. Right Ventricle The right ventricle is normal size. The right ventricular systolic function is normal. Atria The left atrium size is normal. The right atrium size is normal. Aortic Valve The aortic valve is normal in structure. No aortic regurgitation is present. There is no aortic valvular stenosis. Mitral Valve The mitral valve is normal in structure. Trace mitral regurgitation. No evidence of mitral valve stenosis. Tricuspid Valve The tricuspid valve is normal in structure. Trace tricuspid regurgitation. PAP is esimated at 43 mmHg. Pulmonic Valve The pulmonary valve is normal in structure. Trace pulmonic regurgitation. [facility] [address] [place] [address] 2 D/M-MODE ECHOCARDIOGRAM Name: ANNE THOMAS Nicole Room #: 433-I [facility] IN [facility]#: [id number] Admission: 10/06/17 Attend Phys: Dimas Leon, Discharge: Date of : 52 Date of Service: 10/07/17 1833 Report #: [id number] Great Vessels The aortic root is normal in size. IVC is upper limits of normal in size and collapses >50% with inspiration. Pericardium There is no pericardial effusion. <Conclusion> The left ventricular systolic function is normal. There is normal LV segmental wall motion. LVEF is 60-65%. Grade II - pseudonormal filling dynamics. The aortic valve is normal in structure. No aortic regurgitation or stenosis. The mitral valve is normal in structure. Trace mitral regurgitation. Trace tricuspid regurgitation. Pulmonary artery pressure esimated at 43 mmHg. There is no pericardial effusion. <ELECTRONICALLY SIGNED> By: Zeyad Méndez MD, FACC 10/07/171832 32 32 Zeyad Méndez MD, FACC /INF
--- NOTE | ~2017-10-06 | P ---
[facility] [place] [address] PROCEDURE REPORT Name: ANNE THOMAS Room #: 433-I ADM IN M.R.#: [id number] Admission: 10/06/17 Attend Phys: Skip Delacruz MD Discharge: Date of : 52 Report #: [id number] THIS REPORT FOR: //name// CC: Storm Vásquez MD Inpatient Chart Dimas Leon Skip Delacruz MD DATE OF SERVICE: 10/09/2017 The following is an incomplete colonoscopy on the patient. This is Pooja Mancini DO recording the patient of Dr. Delacruz and Dr. Storm Vásquez. INDICATION FOR PROCEDURE: This patient has had lower abdominal pain of undetermined etiology. Informed consent for this procedure was obtained prior to the administration of any medication. The risks of the procedure which include bleeding, perforation, infection, complications of sedation and the possibility I could miss something have been explained to the patient and she is indicated her consent by signing. Propofol was slowly titrated before and during this procedure for patient comfort by the anesthesia service. Digital rectal exam was performed. Then, the [employer] colonoscope was introduced through the anal sphincter and advanced under direct visualization to the length of the scope and despite multiple maneuvers, I was unable to advance the scope to the level of the cecum, but I do believe that I was in the ascending colon. Findings are noted on withdrawal of the scope. The visualized portion of the ascending colon appears normal. Hepatic flexure, normal mucosa. Transverse colon, normal mucosa. Splenic flexure, normal mucosa. Descending colon, normal mucosa. Sigmoid colon, normal mucosa. Rectum, normal mucosa. Retroflex view did not reveal any further abnormalities other than some small internal hemorrhoids. The scope was withdrawn. The patient went to the recovery area in stable condition. She tolerated the procedure well. IMPRESSION: 1. Normal colonoscopic exam to the mid ascending colon, very redundant colon, difficult to scope. The prep was marginal; however, with cleaning and suctioning, we were able to remove most of the stool and see the mucosa adequately. We did not visualize the more proximal ascending colon, cecum or terminal ileum because I could not reach them with the scope. Therefore, the patient is advised to have an air contrast barium enema to evaluate the proximal [address] [address] PROCEDURE REPORT Name: ANNE THOMAS Room #: 433-I [facility] IN [facility]#: [id number] Admission: 10/06/17 Attend Phys: Skip Delacruz MD Discharge: Date of : 52 Report #: [id number] colon more thoroughly to make certain there are not any polyps or masses on that side. There was a single 1-2 cm submucosal lipoma at the level or near the hepatic flexure, it does not need to be removed. The scope was withdrawn. The patient went to the recovery area in stable condition. She tolerated the procedure well. 2. Normal colonoscopic exam to the mid ascending colon except for a single 1-2 cm submucosal lipoma at the level of the hepatic flexure or near it. RECOMMENDATIONS: My recommendations are for her to proceed with air contrast barium enema to evaluate the right colon and the cecum completely. Thank you very much once again for allowing me to participate in her care, Dr. Delacruz and Dr. Vásquez. <ELECTRONICALLY SIGNED> By: Pooja Mancini DO 10/10/17 0033 1622 [id number] Pooja Mancini DO /nt
[~2017-10-06 20:35] MED LIST changes: +KEFLEX500 M1 PO; +NYSTATIN100000 UNI SW&SWALLOW
[2017-10-06 23:50] VITALS: BP 131/78
[2017-10-07 04:00] VITALS: BP 128/60
[2017-10-07 05:32] LABS: HEMATOCRIT 27.2 % (37.0-47.0); HEMOGLOBIN 9.2 gm/dL (12.0-15.0); MCH 29.8 pg (26.0-34.0); MCHC 33.8 g/dL (28.0-37.0); MCV 88.2 fL (80.0-100.0); RBC 3.08 mil/uL (4.20-5.00); RDW 15.7 % (10.5-14.5); WBC 9.8 thou/uL (4.0-11.0)
[2017-10-07 06:01] LABS: CALCIUM 8.3 mg/dL (8.5-10.1); CREATININE 0.6 mg/dL (0.6-1.0); POTASSIUM 3.3 mmol/L (3.5-5.1); TOTAL BILIRUBIN 0.3 mg/dL (<0.1-1.0)
[2017-10-07 07:24] VITALS: BP 125/56
[2017-10-07 16:00] VITALS: BP 125/64
[2017-10-07 19:07] VITALS: BP 117/57
[2017-10-08 03:56] VITALS: BP 139/71
[2017-10-08 05:55] LABS: ABSOLUTE NEUTROPHILS 5.1 thou/uL (1.4-8.2); BASOPHILS 0.6 % (0.0-2.0); HEMOGLOBIN 8.8 gm/dL (12.0-15.0); LYMPHOCYTES 25.5 % (24.0-44.0); MCH 29.7 pg (26.0-34.0); MCHC 33.8 g/dL (28.0-37.0); MCV 87.9 fL (80.0-100.0); MONOCYTES 7.5 % (1.0-8.0); PLATELET COUNT 135 thou/uL (150-400); POLYS 61.4 % (36.0-66.0); RBC 2.96 mil/uL (4.20-5.00); RDW 15.4 % (10.5-14.5); WBC 8.2 thou/uL (4.0-11.0)
[2017-10-08 06:13] LABS: CREATININE 0.7 mg/dL (0.6-1.0); MAGNESIUM 1.9 mg/dL (1.8-2.4); POTASSIUM 3.4 mmol/L (3.5-5.1); TOTAL BILIRUBIN 0.3 mg/dL (<0.1-1.0); TOTAL PROTEIN 5.1 g/dL (6.4-8.2)
[2017-10-08 08:00] VITALS: BP 146/71
[2017-10-08 14:45] VITALS: BP 146/67
[2017-10-08 17:50] LABS: INR 1.8; PROTIME 18.1 Seconds (9.3-11.4)
[2017-10-08 19:28] VITALS: BP 128/74
[2017-10-09 04:20] VITALS: BP 144/68
[2017-10-09 06:49] LABS: % SATURATION 34 % (20-39); IRON 39 ug/dL (50-170); TIBC 115 ug/dL (250-450)
[2017-10-09 08:00] VITALS: BP 152/67
[2017-10-09 09:02] LABS: CALCIUM 8.1 mg/dL (8.5-10.1); CREATININE 0.7 mg/dL (0.6-1.0); MAGNESIUM 1.9 mg/dL (1.8-2.4)
[2017-10-09 09:03] LABS: POTASSIUM 3.4 mmol/L (3.5-5.1)
[2017-10-09 18:09] LABS: HAV IgM AB (ANTI-HAV IgM) Negative (Negative); HEPATITIS B SURFACE AG Negative (Negative); HEPATITIS C VIRUS AB <0.1 (0.0-0.9)
[2017-10-09 20:24] VITALS: BP 153/75
[2017-10-10 07:10] VITALS: BP 151/77
[2017-10-10 11:10] LABS: HEMATOCRIT 28.4 % (37.0-47.0); HEMOGLOBIN 9.6 gm/dL (12.0-15.0); MCH 29.7 pg (26.0-34.0); MCHC 33.8 g/dL (28.0-37.0); MCV 87.7 fL (80.0-100.0); RBC 3.25 mil/uL (4.20-5.00); RDW 15.5 % (10.5-14.5); WBC 10.3 thou/uL (4.0-11.0)
[2017-10-10 11:27] LABS: CALCIUM 8.4 mg/dL (8.5-10.1); CREATININE 0.7 mg/dL (0.6-1.0); POTASSIUM 3.6 mmol/L (3.5-5.1)
[2017-10-10 16:20] VITALS: BP 120/67
[2017-10-10 19:18] VITALS: BP 95/42
[2017-10-11 05:44] VITALS: BP 136/59
[2017-10-11 07:05] VITALS: BP 149/53
[2017-10-11 15:30] VITALS: BP 148/63
[2017-10-11 18:07] LABS: ALBUMIN 2.1 g/dL (3.4-5.0); CALCIUM 8.1 mg/dL (8.5-10.1); CREATININE 0.8 mg/dL (0.6-1.0); POTASSIUM 3.3 mmol/L (3.5-5.1); TOTAL BILIRUBIN 0.4 mg/dL (<0.1-1.0); TOTAL PROTEIN 5.5 g/dL (6.4-8.2)
[2017-10-11 20:27] VITALS: BP 146/63
[2017-10-12 06:33] VITALS: BP 148/63
[2017-10-12 07:05] VITALS: BP 152/71
[2017-10-12 15:15] VITALS: BP 147/68
[2017-10-12 19:33] VITALS: BP 124/59
[2017-10-13 04:17] VITALS: BP 149/81
[2017-10-13 05:19] LABS: ABSOLUTE NEUTROPHILS 6.5 thou/uL (1.4-8.2); BASOPHILS 0.6 % (0.0-2.0); HEMATOCRIT 26.2 % (37.0-47.0); HEMOGLOBIN 8.8 gm/dL (12.0-15.0); MCH 29.8 pg (26.0-34.0); MCHC 33.5 g/dL (28.0-37.0); MCV 88.9 fL (80.0-100.0); MONOCYTES 8.3 % (1.0-8.0); PLATELET COUNT 182 thou/uL (150-400); POLYS 65.1 % (36.0-66.0); RBC 2.95 mil/uL (4.20-5.00); RDW 15.6 % (10.5-14.5)
[2017-10-13 05:32] LABS: ANION GAP 7 mmol/L (7-16); BUN 10 mg/dL (7-18); CALCIUM 8.1 mg/dL (8.5-10.1); CHLORIDE 105 mmol/L (98-107); CO2 25 mmol/L (21-32); CREATININE 0.6 mg/dL (0.6-1.0); DIRECT BILIRUBIN < 0.1 mg/dL (<0.1-0.3); GLUCOSE 103 mg/dL (74-106); POTASSIUM 3.7 mmol/L (3.5-5.1); SGOT 38 U/L (15-37); SGPT 47 U/L (30-65); SODIUM 137 mmol/L (136-145); TOTAL BILIRUBIN 0.4 mg/dL (<0.1-1.0); TOTAL PROTEIN 5.4 g/dL (6.4-8.2)
[2017-10-13 08:00] VITALS: BP 152/81
[2017-10-13 15:46] VITALS: BP 153/77
[2017-10-13 20:11] VITALS: BP 150/76
[2017-10-14 03:00] VITALS: BP 137/67
[2017-10-14 07:00] VITALS: BP 153/68
[2017-10-14 12:57] VITALS: BP 153/68
[2017-10-14] MEDS ORDERED: NORCO 5-325 TA1 EACH PO (13:35)
== END 2017-10-14 14:40 | disposition home or self-care (01) | DRG 438 ==
LOC: 4E 20:35 → 4S 23:14 → ENTRNSPT 10-14 14:14 → EDTRNSPTSTS 10-14 14:23 → 4S 10-14 14:40
PROVIDERS: Family Medicine; Internal Medicine; Nurse Practitioner; Nurse Practitioner Acute Care
PROC: 0DJD8ZZ Inspection of Lower Intestinal Tract, Via Natural or Artificial Opening Endoscopic (ICD-10-PCS; principal; 2017-10-09)
DX: K85.90 Acute pancreatitis without necrosis or infection, unspecified (principal); E43 Unspecified severe protein-calorie malnutrition; J90 Pleural effusion, not elsewhere classified; E87.6 Hypokalemia; G89.29 Other chronic pain; Z96.642 Presence of left artificial hip joint; F17.210 Nicotine dependence, cigarettes, uncomplicated; E87.70 Fluid overload, unspecified; R74.0 Nonspecific elevation of levels of transaminase and lactic acid dehydrogenase [LDH]; K21.9 Gastro-esophageal reflux disease without esophagitis; R60.1 Generalized edema; D63.8 Anemia in other chronic diseases classified elsewhere; K58.1 Irritable bowel syndrome with constipation; Z80.9 Family history of malignant neoplasm, unspecified; Z82.49 Family history of ischemic heart disease and other diseases of the circulatory system; Z83.3 Family history of diabetes mellitus; Z71.6 Tobacco abuse counseling; Z88.1 Allergy status to other antibiotic agents; Z79.899 Other long term (current) drug therapy
CPT/HCPCS: 10102; 62110; 62900